=== PATIENT | female | born 1995 | race Caucasian/White ===

== ENCOUNTER 2018-09-29 22:37 | Emergency (ER) | payer BC ==
[~2018-09-29] VITALS: Ht 162.6 cm; Wt 65.8 kg
[2018-09-29 22:51] VITALS: BP 102/63
--- NOTE | 2018-09-29 22:51 | NUR ---
ED Nurse Note: Pt arrived ED from home, c/o sore throat for 2 days and pt states that she was pregnent for 6 weeks. Pt is A/O X4. Margarita signs stable at this time, waiting for orders.
[2018-09-29] MEDS ORDERED: IBUPROFEN600 MG ORAL (23:13)
--- NOTE | 2018-09-29 23:13 | Emergency Room Report ---
History of Present Illness General Chief Complaint: Sore Throat Source: Patient Present Illness HPI Is a 23-year-old female with no past medical history. She presents with chief complaint of sore throat. Onset yesterday. Pain is 7 out of 10. Worse with swallowing. Subjective fever. Has not anything for it. No nausea no vomiting. Does have some congestion and hoarseness of her voice. Denies any other complaint. Allergies: Coded Allergies: No Known Allergies (Unverified , 09/29/18) Patient History Past Medical History: see triage record, old chart reviewed Past Surgical History: none Pertinent Family History: none Social History: Denies: smoking Last Menstrual Period: 03/2018 Now: Yes - 6 months : 2 Para: 1 Immunizations: other Reviewed Nursing Documentation: PMH: Agreed; PSxH: Agreed Nursing Documentation-PM Past Medical History: No Stated History Review of Systems Eye: Denies: eye pain, blurred vision ENT: Reports: throat pain; Denies: ear pain, nose congestion, throat swelling Respiratory: Denies: cough, shortness of breath Cardiovascular: Denies: chest pain, palpitations Gastrointestinal: Denies: abdominal pain, diarrhea, nausea, vomiting Musculoskeletal: Denies: back pain, joint pain Skin: Denies: rash Neurological: Denies: headache, numbness Endocrine: Denies: increased thirst, increased urine Hematologic/Lymphatic: Denies: easy bruising All Other Systems: negative except mentioned in HPI Physical Exam Vital Signs Date Time Temp Pulse Resp B/P (MAP) Pulse Ox O2 Delivery O2 Flow Rate FiO2 09/29/18 22:46 98.4 102 16 98/62 98 Room Air vitals normal Sp02 EP Interpretation: reviewed, normal General Appearance: well appearing, no apparent distress, alert Head: normocephalic, atraumatic Eyes: bilateral eye PERRL, bilateral eye EOMI ENT: hearing grossly normal, pharyngeal erythema - Mild Neck: full range of motion, supple, no meningismus Respiratory: chest non-tender, lungs clear, normal breath sounds Cardiovascular #1: regular rate, rhythm, no murmur Gastrointestinal: normal bowel sounds, non tender, no mass, no organomegaly, no bruit, non-distended Musculoskeletal: back normal, gait/station normal, normal range of motion Psychiatric: mood/affect normal Skin: warm/dry Medical Decision Making Diagnostic Impression: Primary Impression: Pharyngitis, acute Qualified Codes: J02.9 - Acute pharyngitis, unspecified ER Course Patient with a pharyngitis. Most likely viral in nature. She has no fever, exudates, adenopathy or other Centor criteria to indicate strep. Throat culture sent. I told patient that if positive, we'll call and put on antibiotics if not we'll do symptomatically treatment. Last Vital Signs Date Time Temp Pulse Resp B/P (MAP) Pulse Ox O2 Delivery O2 Flow Rate FiO2 09/29/18 22:51 98.2 86 16 102/63 98 Room Air Status: improved Disposition: HOME, SELF-CARE Condition: Stable Scripts Ibuprofen* (MOTRIN*) 600 Mg Tablet 600 MG ORAL THREE TIMES A DAY, #30 TAB 0 Refills Prov: Bud Maher MD 09/29/18 Patient Instructions: Sore Throat Additional Instructions: Increase fluid. Salt water gargle. Symptomatic treatment. If throat culture is positive for strep, will call and prescribe antibiotics. Follow-up with your doctor in 7 days. Return if worse. Bud Maher MD Sep 29, 2018 23:13
[2018-09-29 23:21] VITALS: BP 103/61
--- NOTE | 2018-09-29 23:21 | NUR ---
ER DISCHARGE NOTE: Patient is cleared to be discharged per Dr. Maher. Pt is A/O x4 on room air with stable vital signs. Pt was given D/C and prescription instructions and pt was able to verbalize understanding. Pt's ID band removed. Pt is able to ambulate with steady gait and took all belongings.
== END 2018-09-29 23:21 | disposition home or self-care (01) ==
LOC: EMR 23:00
DX: J02.0 Streptococcal pharyngitis (principal)
CPT/HCPCS: 87070; 99282